=== PATIENT | male | born 1965 | race African-American/Black ===

== ENCOUNTER 2018-10-23 20:40 | Emergency (ER) | payer BC, OTHER ==
--- NOTE | 2018-10-23 21:04 | ER Document Report ---
ED Medical Screen (RME) - General Chief Complaint: High Blood Sugar Stated Complaint: WEAKNESS Time Seen by Provider: 10/23/18 20:55 Mode of Arrival: Ambulatory Information source: Patient Notes: 53-year-old male presented to ED for complaint of elevated blood sugar weakness dizziness vomiting headache headache is worse if he tries to read something. His Accu-Chek in the pit area is 156. Vital signs are stable at this time. Will run labs and urine and give him IV fluids while he is waiting. Also give him Zofran. I have greeted and performed a rapid initial assessment of this patient. A comprehensive ED assessment and evaluation of the patient, analysis of test results and completion of medical decision making process will be conducted by an additional ED providers. - Related Data Allergies/Adverse Reactions: codeine Allergy (Verified 10/23/18 20:42) Physical Exam - Vital signs Vitals: Temp Pulse Resp BP Pulse Ox 98.3 F 70 18 151/88 H 98 10/23/18 20:48 10/23/18 20:48 10/23/18 20:48 10/23/18 20:48 10/23/18 20:48 Course - Vital Signs Vital signs: Temp Pulse Resp BP Pulse Ox 98.3 F 70 18 151/88 H 98 10/23/18 20:48 10/23/18 20:48 10/23/18 20:48 10/23/18 20:48 10/23/18 20:48 - Laboratory Laboratory results interpreted by me: 10/23/18 20:55 POC Glucose 156 H
[2018-10-23 23:00] LABS: ABSOLUTE BASOPHILS # (AUTO) 0.1 10^3/uL (0.0-0.2); ABSOLUTE EOSINOPHILS # (AUTO) 0.1 10^3/uL (0.0-0.6); ABSOLUTE LYMPHOCYTES (AUTO) 2.3 10^3/uL (0.5-4.7); ABSOLUTE MONOCYTES (AUTO) 0.6 10^3/uL (0.1-1.4); ABSOLUTE NEUT (AUTO) 3.4 10^3/uL (1.7-8.2); BASOPHILS % (AUTO) 0.8 % (0-2); EOSINOPHILS % (AUTO) 1.9 % (0-6); HEMATOCRIT 49.6 % (37.9-51.0); HEMOGLOBIN 16.9 g/dL (13.5-17.0); LYMPHOCYTES % (AUTO) 35.3 % (13-45); MEAN CORPUSCULAR HEMOGLOBIN 28.9 pg (27.0-33.4); MEAN CORPUSCULAR HGB CONC 34.1 g/dL (32.0-36.0); MEAN CORPUSCULAR VOLUME 85 fl (80-97); MONOCYTES % (AUTO) 9.4 % (3-13); PLATELET COUNT 320 10^3/uL (150-450); RED BLOOD COUNT 5.85 10^6/uL (4.35-5.55); RED CELL DISTRIBUTION WIDTH 14.8 % (11.5-14.0); SEGMENTED NEUTROPHILS % (AUTO) 52.6 % (42-78); TOTAL CELLS COUNTED % (AUTO) 100 %; WHITE BLOOD COUNT 6.5 10^3/uL (4.0-10.5)
[2018-10-23 23:14] LABS: APPEARANCE,URINE CLEAR; BILIRUBIN,URINE NEGATIVE (NEGATIVE); COLOR,URINE STRAW; GLUCOSE, URINE NEGATIVE (NEGATIVE); KETONES,URINE NEGATIVE (NEGATIVE); LEUKOCYTE ESTERASE,URINE SMALL (NEGATIVE); NITRITE,URINE NEGATIVE (NEGATIVE); PROTEIN,URINE NEGATIVE (NEGATIVE); URINE SPECIFIC GRAVITY 1.011; UROBILINOGEN,URINE NEGATIVE mg/dL (<2.0)
[2018-10-23 23:16] LABS: ALBUMIN 4.6 g/dL (3.5-5.0); ALKALINE PHOSPHATASE 74 U/L (38-126); ANION GAP 9 (5-19); ASPARTATE AMINO TRANSFERASE 37 U/L (17-59); BILIRUBIN,DIRECT 0.2 mg/dL (0.0-0.4); BILIRUBIN,TOTAL 0.4 mg/dL (0.2-1.3); BLOOD UREA NITROGEN 13 mg/dL (7-20); CALCIUM 9.4 mg/dL (8.4-10.2); CARBON DIOXIDE 24 mmol/L (22-30); CHLORIDE 105 mmol/L (98-107); CREATINE KINASE 203 U/L (55-170); GLUCOSE 116 mg/dL (75-110); POTASSIUM 4.5 mmol/L (3.6-5.0); TOTAL PROTEIN 7.3 g/dL (6.3-8.2)
[2018-10-23 23:19] LABS: ADD MANUAL MICROSCOPIC YES
[2018-10-23 23:22] LABS: BACTERIA,URINE TRACE /HPF; WBC,URINE RARE /HPF
--- NOTE | 2018-10-24 00:53 | ER Document Report ---
ED General - General Chief Complaint: High Blood Sugar Stated Complaint: WEAKNESS Time Seen by Provider: 10/23/18 20:55 Primary Care Provider: SHMUEL CLARK MD [ACTIVE STAFF] - Follow up as needed (local primary care. ) Mode of Arrival: Ambulatory Notes: Patient is a 53-year-old male with diabetes and hypertension that presents to the emergency department for chief complaint of lightheadedness. Patient states that he was recently started on atenolol, 25 mg twice daily, about 2 weeks ago, and since then he is been having off-and-on lightheadedness, he was worse today, he felt like he may pass out so he decided come to the emergency department. He states he feels much better now, he had some mild nausea but no vomiting. Denies any headache, numbness, weakness or tingling, denies any slurred speech or difficulty speaking. He did not have any syncopal episodes, and overall f eels much better now. Denies having any chest pain, shortness of breath, difficulty breathing. No other complaints. Past Medical History: Diabetes mellitus, hypertension Past Surgical History: Denies any recent or pertinent surgical history Social History: Denies tobacco, alcohol or drug use. Family History: Reviewed and noncontributory for presenting illness Allergies: Reviewed, see documented allergy list. REVIEW OF SYSTEMS: Other than noted above, the 12 point review of systems was reviewed with the patient and were negative, all pertinent findings are included in the HPI. PHYSICAL EXAMINATION: Vital signs reviewed, nursing noted reviewed. GENERAL: Well-appearing, well-nourished and in no acute distress. HEAD: Atraumatic, normocephalic. EYES: Eyes appear normal, extraocular movements intact, sclera anicteric, conjunctiva are normal. ENT: nares patent, oropharynx clear without exudates. Moist mucous membranes. NECK: Normal range of motion, supple without lymphadenopathy LUNGS: Breath sounds clear to auscultation bilaterally and equal. No wheezes rales or rhonchi. HEART: Regular rate and rhythm without murmurs ABDOMEN: Soft, nontender, normoactive bowel sounds. No rebound, guarding, or rigidity. No masses appreciated. EXTREMITIES: Nontender, good range of motion, no pitting or edema. NEUROLOGICAL: No focal neurological deficits. Moves all extremities spo ntaneously Motor and sensory grossly intact on exam. PSYCH: Normal mood, normal affect. SKIN: Warm, Dry, normal turgor, no rashes or lesions noted on exposed skin TRAVEL OUTSIDE OF THE [place] IN LAST 30 DAYS: No - Related Data Allergies/Adverse Reactions: codeine Allergy (Verified 10/23/18 20:42) Past Medical History - General Information source: Patient - Social History Smoking Status: Never Smoker Chew tobacco use (# tins/day): No Family History: Reviewed & Not Pertinent Patient has suicidal ideation: No Patient has homicidal ideation: No - Past Medical History Cardiac Medical History: Reports: Hx Hypertension Endocrine Medical History: Reports: Hx Diabetes Mellitus Type 2 Physical Exam - Vital signs Vitals: Temp Pulse Resp BP Pulse Ox 98.3 F 70 18 151/88 H 98 10/23/18 20:48 10/23/18 20:48 10/23/18 20:48 10/23/18 20:48 10/23/18 20:48 Course - Re-evaluation Re-evalutation: Patient seen and examined vital signs reviewed. Laboratory data and/or imaging were ordered as appropriate for the patient's presenting symptoms and complaint, with consideration of any critical or life threatening conditions that may be associated with their obtained history and exam as noted above. Results were reviewed when available and demonstrated unremarkable blood work The patient was re-evaluated and was stable, felt well Evaluation was most consistent with lightheadedness, likely secondary to recent start of beta-elizabeth, patient was not on blood pressure medications until being started on this, and he is on a twice daily atenolol, which is not traditional regimen for this medication, likely leading to the patient's lightheadedness, he was mildly bradycardic in the ED, but not hypotensive. I advised him to cut back to 25 mg daily, and then to follow-up with his primary care and patient was agreeable. Results were discussed with the patient at this point, after careful considerat ion I feel that that patient can be discharged from the emergency department, the patient was educated treatments and reasons to return to the emergency department based on their presumed diagnosis as noted above, they were advised to followup with a primary care physician in 2-3 days. Patient was agreeable to plan of care. *Note is created using voice recognition software and may contain spelling, syntax or grammatical errors. Laboratory 10/23/18 10/23/18 10/23/18 20:55 22:46 22:46 WBC 6.5 RBC 5.85 H Hgb 16.9 Hct 49.6 MCV 85 MCH 28.9 MCHC 34.1 RDW 14.8 H Plt Count 320 Lymph % (Auto) 35.3 [place] % (Auto) 9.4 Eos % (Auto) 1.9 Baso % (Auto) 0.8 Absolute Neuts (auto) 3.4 Absolute Lymphs (auto) 2.3 Absolute Monos (auto) 0.6 Absolute Eos (auto) 0.1 Absolute Basos (auto) 0.1 Seg Neutrophils % 52.6 Sodium 138.1 Potassium 4.5 Chloride 105 Carbon Dioxide 24 Anion Gap 9 BUN 13 Creatinine 1.02 Est GFR ( Amer) > 60 Est GFR (MDRD) Non-Af > 60 Glucose 116 H POC Glucose 156 H Calcium 9.4 Total Bilirubin 0.4 Direct Bilirubin 0.2 Neonat Total Bilirubin Not Reportable Neonat Direct Bilirubin Not Reportable Neonat Indirect Bili Not Reportable AST 37 ALT 52 Alkaline Phosphatase 74 Creatine Kinase 203 H Total Protein 7.3 Albumin 4.6 Lipase 95.1 Urine Color Urine Appearance Urine pH Ur Specific [place] Urine Protein Urine Glucose (UA) Urine Ketones Urine Blood Urine Nitrite Urine Bilirubin Urine Urobilinogen Ur Leukocyte Esterase Urine WBC Ur Squamous Epith Cells Urine Bacteria Urine Ascorbic Acid 10/23/18 22:46 WBC RBC Hgb Hct MCV MCH MCHC RDW Plt Count Lymph % (Auto) [place] % (Auto) Eos % (Auto) Baso % (Auto) Absolute Neuts (auto) Absolute Lymphs (auto) Absolute Monos (auto) Absolute Eos (auto) Absolute Basos (auto) Seg Neutrophils % Sodium Potassium Chloride Carbon Dioxide Anion Gap BUN Creatinine Est GFR ( Amer) Est GFR (MDRD) Non-Af Glucose POC Glucose Calcium Total Bilirubin Direct Bilirubin Neonat Total Bilirubin Neonat Direct Bilirubin Neonat Indirect Bili AST ALT Alkaline Phosphatase Creatine Kinase Total Protein Albumin Lipase Urine Color STRAW Urine Appearance CLEAR Urine pH 7.0 Ur Specific [place] 1.011 Urine Protein NEGATIVE Urine Glucose (UA) NEGATIVE Urine Ketones NEGATIVE Urine Blood NEGATIVE Urine Nitrite NEGATIVE Urine Bilirubin NEGATIVE Urine Urobilinogen NEGATIVE Ur Leukocyte Esterase SMALL H Urine WBC RARE Ur Squamous Epith Cells MODERATE Urine Bacteria TRACE Urine Ascorbic Acid NEGATIVE - Vital Signs Vital signs: Temp Pulse Resp BP Pulse Ox 98.3 F 59 L 16 157/86 H 98 10/23/18 20:48 10/23/18 23:32 10/23/18 23:32 10/23/18 23:32 10/23/18 23:32 - Laboratory Result Diagrams: 10/23/18 22:46 10/23/18 22:46 Laboratory results interpreted by me: 10/23/18 10/23/18 10/23/18 20:55 22:46 22:46 RBC 5.85 H RDW 14.8 H Glucose 116 H POC Glucose 156 H Creatine Kinase 203 H Ur Leukocyte Esterase 10/23/18 22:46 RBC RDW Glucose POC Glucose Creatine Kinase Ur Leukocyte Esterase SMALL H Discharge - Discharge Clinical Impression: Lightheadedness Condition: Stable Disposition: HOME, SELF-CARE Instructions: Near Syncopal Episode ([facility]) Additional Instructions: Please follow-up with your primary care physician, at this point I would recommend only taking the atenolol 25 mg once daily, and taking it in the evening. Please discuss this further with your primary care physician. If you have any further issues, do not hesitate to return to the emergency department. Referrals: SHMUEL CLARK MD [ACTIVE STAFF] - Follow up as needed (local primary care. )
[2018-10-24 01:16] VITALS: BP 148/91
== END 2018-10-24 01:14 | disposition home or self-care (01) ==
LOC: ER 20:40
DX: R53.1 Weakness (principal); R42 Dizziness and giddiness; I10 Essential (primary) hypertension; E11.9 Type 2 diabetes mellitus without complications; Z88.6 Allergy status to analgesic agent
CPT/HCPCS: 36415; 80053; 81001; 82550; 82962; 83690; 85025; 99284